=== PATIENT | female | born 1940 | race African-American/Black ===

== ENCOUNTER 2017-09-10 15:48 | Emergency (ER) | payer OTHER ==
[~2017-09-10] VITALS: Ht 154.9 cm; Wt 59.0 kg
[~2017-09-10 15:48] MED LIST: ALLERGY RELIEF10 M1 PO; ASPI-COR81 M1 PO; COR3 PO; CRESTOR10 M1 PO; CRESTOR10 MG PO; DYMISTA1 SPR NS; GLU500 PO; HYDRALAZINE100 MG PO; LIPITOR80 MG PO; PLA75 PO
[2017-09-10 15:54] VITALS: Ht 154.9 cm; Wt 59.0 kg
[2017-09-10 16:47] LABS: BASOPHIL % 0.4 % (0-2); PLATELET COUNT 235 x10^3mcL (130-400)
[2017-09-10 17:00] LABS: CALCIUM 8.7 mg/dL (8.5-10.1); CARBON DIOXIDE 31.9 mmol/L (21-32); CHLORIDE SERUM 107 mmol/L (98-107); CREATININE SERUM 1.1 mg/dL (0.6-1.0); GLUCOSE SERUM 112 mg/dL (74-106); POTASSIUM SERUM 4.2 mmol/L (3.5-5.1); SODIUM SERUM 144 mmol/L (136-145)
[2017-09-10 17:05] LABS: ALKALINE PHOSPHATASE 72 U/L (46-116); ALT/SGPT 16 U/L (14-59); AST/SGOT 15 U/L (15-37); BILIRUBIN TOTAL 0.2 mg/dL (0.20-1.00); TOTAL PROTEIN, SERUM 7.5 g/dL (6.4-8.2)
[2017-09-10 17:07] LABS: ALBUMIN 3.1 g/dL (3.4-5.0)
[2017-09-10 17:31] LABS: RED CELL DISTRIBUTION WIDTH 18.5 % (11.5-14.5)
[2017-09-10 18:30] VITALS: BP 137/78
== END 2017-09-10 18:30 | disposition home or self-care (01) ==
LOC: ED 15:48
PROVIDERS: Emergency Medicine
DX: R04.0 Epistaxis (principal); Z88.0 Allergy status to penicillin; Z88.2 Allergy status to sulfonamides; J44.9 Chronic obstructive pulmonary disease, unspecified; I10 Essential (primary) hypertension; E11.8 Type 2 diabetes mellitus with unspecified complications
CPT/HCPCS: 36415

== ENCOUNTER 2018-11-06 14:26 | Inpatient (IN) | payer OTHER ==
[~2018-11-06] VITALS: Ht 157.5 cm; Wt 64.0 kg
--- NOTE | 2018-11-06 15:16 | NUR ---
PT BIB, PT WAS FOUND ON FLOOR OF APT IN SEATED POSITION, PT WAS ABLE TO STATE SHE HAD FALLEN AND SEATED SELF DOWN ON FLOOR, PT HAD BEEN ON FLOOR >24HRS, PT DENIES ANY PAIN, BUT HAS PROFOUND WEAKNESS; PER EMS, APT WAS VERY HOT, PT WAS UNABLE TO TURN ON AIR CONDITIONING; PT HAS HX OF CHF AND DEMENTIA; IS ABLE TO ANSWER SOME QUESTIONS APPROPRIATELY, BUT REMAINS WITH SOME CONFUSED SPEECH; PREP FOR EXAM/EVAL; PT HAS NO FEVER
--- NOTE | 2018-11-06 16:16 | NUR ---
PT SEEN BY PROVIDER ORDERS REC'D; PT REFUSED PHLEBOTOMY FOR LAB DRAW; PT WANTING FOOD AT THIS TIME
[2018-11-06 16:44] LABS: BASOPHIL % 0 % (0-2); PLATELET COUNT 219 x10^3mcL (130-400); RED CELL DISTRIBUTION WIDTH 19.2 % (11.5-14.5)
--- NOTE | 2018-11-06 16:53 | NUR ---
IV LINE INITIATED TO L AC; PT ANGELIA WELL, LABS DRAWN/SENT INCLUDING BLOOD CULTURES; IV FLUIDS INIITATED; PT ANGELIA WELL, CONT TO MONITOR
[2018-11-06 16:58] LABS: CALCIUM 8.7 mg/dL (8.5-10.1); CARBON DIOXIDE 27.7 mmol/L (21-32); CHLORIDE SERUM 109 mmol/L (98-107); GLUCOSE SERUM 111 mg/dL (74-106); POTASSIUM SERUM 3.1 mmol/L (3.5-5.1); SODIUM SERUM 147 mmol/L (136-145)
[2018-11-06 17:02] LABS: ALBUMIN 3.2 g/dL (3.4-5.0); ALKALINE PHOSPHATASE 56 U/L (46-116); ALT/SGPT 19 U/L (14-59); AST/SGOT 21 U/L (15-37); BILIRUBIN TOTAL 0.3 mg/dL (0.20-1.00); CHOLESTEROL 139 mg/dL (<200); HDL CHOLESTEROL 58 mg/dL (40-60); MAGNESIUM 2.1 mg/dL (1.8-2.4); TOTAL PROTEIN, SERUM 7.5 g/dL (6.4-8.2)
--- NOTE | 2018-11-06 17:35 | NUR ---
PT RESTING WELL, GIVEN SANDWICH AND ORAL FLUIDS; ANGELIA WELL, WAITING ON FURTHER EVAL
--- NOTE | 2018-11-06 18:05 | NUR ---
PT LINEN CHANGED, NEW DIAPER PLACED
--- NOTE | 2018-11-06 18:59 | NUR ---
PT AGREEABLE TO ADMIT; ANGELIA LOPEZ
[2018-11-06 19:21] LABS: FREE T4 1.4 ng/dL (0.76-1.46); FREE THYROXINE INDEX 2.1 ug/dL (1.4-4.5); T4(THYROXINE) 6.7 ug/dL (4.7-13.3)
[2018-11-06 19:24] LABS: T3 TOTAL 1.02 ng/mL
--- NOTE | 2018-11-06 19:54 | NUR ---
REPORT GIVEN TO SERINA PHILLIPS TO ASSUME CARE OF PT.
[2018-11-06 20:27] LABS: microscopic required? YES; urine erythrocyte 1+ (NEGATIVE)
--- NOTE | 2018-11-06 20:32 | NUR ---
RECEIVED PT FROM ED VIA TRAVIS, CAME IN DUE TO SYNCOPE AND FALL YESTERDAY. AAOX4, IGIUGIG, ABLE TO FOLLOW COMMANDS. SPEECH IS CLEAR, NO FACIAL DROOP, RIGHT HAND ALMOND PASTE MOLDER IS WEAKER THAN THE LEFT. NO SOB, LUNG SOUNDS CTA. O2 SAT=98% ON 2LPM/NC. DENIES CHEST PAIN/PRESSURE, SR ON THE MONITOR. DENIES ABDOMINAL DISCOMFORT. VOIDS. W/ ECCHYMOSIS ON BILATERAL KNEE AND LEFT HIP, DISCOLORATIONS W/ DRY SKIN ON THE LEFT BREASTFOLD AND PINK DISCOLORATION ON THE LEFT ABDOMINAL FOLD AND RIGHT ANTECUBITAL AREA AND LEFT HIP ECCHYMOSIS, SHEET ROCK SANDER. SIDE RAILS UPX2. CALL LIGHT ON REACH. HOB ELEVATED AT 30 DEG. ENDORSED TO PRIMARY NURSE KINGSLEY FOR CONTINUITY OF CARE
[2018-11-06 21:00] VITALS: BP 135/84
--- NOTE | 2018-11-06 21:00 | NUR ---
RECEIVED REPORT FROM ADMITTING NURSE NGOC. PT STATES FEELING SLEEPY. WANTS TP REST. IV TO LAC NOT FLUSHING. NEW IV INSERTED TO RIGHT HAND. CONNECTED TO IV FLUIDS AT 100ML/HR. NO ACUTE DISTRESS NOTED. BED AT LOWEST SETTING. SIDE RAILS X2 UP. CALL LIGHT WITHING REACH. WILL CONTINUE TO MONITOR.
[2018-11-06 21:03] VITALS: Ht 157.5 cm; Wt 64.0 kg
[2018-11-07 00:20] VITALS: BP 135/84
--- NOTE | 2018-11-07 00:22 | NUR ---
PT LAYING DOWN IN BED WITH EYES CLOSED. BREATHING EVEN AND UNLABORED ON 2L NC. HOB ELEVATED. NO SOB NOTED. NO ACUTE DISTRESS NOTED. NS RUNNING AT 100ML/HR TO RIGHT HAND. BED AT LOWEST SETTING. SIDE RAILS X2 UP. CALL LIGHT WITHING REACH. WILL CONTINUE TO MONITOR.
[2018-11-07 06:21] VITALS: BP 175/88
--- NOTE | 2018-11-07 06:56 | NUR ---
PT SLEPT WELL THROGHOUT THE NIGHT. BREATHING EVEN AND UNLABORED ON 2L NC. NO ACUTE DISTRESS NOTED. PT AAOX3, FORGETFUL AT TIMES. PT BP 175/88, RESIDENT SANGEETA MADE AWARE. NEW ORDERS RECEIVED FOR HYDRALAZINE PRN. HYDRALAZINE PRN GIVEN PER MAY. ALL NEEDS ASSESSED AND ATTENDED TO. BED AT LOWEST SETTING. SIDE RAILS X2 UP. CALL LIGHT WITHING REACH. WILL ENDORSE CARE TO AM NURSE.
--- NOTE | 2018-11-07 07:09 | NUR ---
PT CURRENT BP, 129/64 MAP 102, HR 72. NO AUCTE DISTRESS NOTED. WILL ENDORSE CARE TO AM NURSE.
[2018-11-07 07:12] LABS: BASOPHIL % 0.6 % (0-2); PLATELET COUNT 225 x10^3mcL (130-400)
[2018-11-07 07:16] LABS: RED CELL DISTRIBUTION WIDTH 19.8 % (11.5-14.5)
--- NOTE | 2018-11-07 07:30 | NUR ---
PT ENDORSE TO ME THIS MORNING. LAYING IN BED RESTING, AA/O X4, BREATHING EVEN AND UNLABORED REMAINS ON 2L NC, I.S. NO ACUTE RESP DISTRESS OR SOB NOTED. TELE 16 SR NOTED / DENIES ANY CP OR PRESSURE. INCONT. GEN WEAKNESS NOTED/ PER PT USES WALKER AT HOME. PENDING PT EVAL TODAY. L HIP AND RAC DISCOLORATION /THEA. L BREASTFOLD/ABD DISCOLORATION/ SHOTWELD OPERATOR AND R KNEE ABRASION NOTED/ SHOTWELD OPERATOR. IV TO THE LAC INTACT AND PATENT/ INFUSING AT 100ML/HR, NO REDNESS OR SWELLING NOTED. CALL LIGHT IN REACH, X2 SIDE RAILS UP/ KNOWS TO CALL FOR ASSIST. WILL CONTINUE TO MONITOR.
[2018-11-07 08:50] LABS: CALCIUM 7.7 mg/dL (8.5-10.1); CARBON DIOXIDE 28.9 mmol/L (21-32); CHLORIDE SERUM 109 mmol/L (98-107); CREATININE SERUM 0.9 mg/dL (0.6-1.0); GLUCOSE SERUM 124 mg/dL (74-106); SODIUM SERUM 147 mmol/L (136-145)
[2018-11-07 08:51] LABS: POTASSIUM SERUM 2.9 mmol/L (3.5-5.1)
--- NOTE | 2018-11-07 09:00 | NUR ---
LAB CALLED K 2.9, DR. EDWIN HILL. WILL CONTINUE TO MONITOR.
[2018-11-07 09:47] VITALS: BP 139/69
--- NOTE | 2018-11-07 10:43 | NUR ---
PT TAKEN TO RADIOLOGY FOR CT OF HEAD- PT HEPLOCKED, BREATHING EVEN AND UNLABORED ON 2 L NC, NO ACUTE RESP DISTRESS OR SOB NOTED. WILL CONTINUE TO MONITIOR WHEN PT RETURNS.
--- NOTE | 2018-11-07 11:50 | NUR ---
PT BACK FROM RAD, RECONNECTED TO IV 1/2 NS AT 80ML/HR/ PT DENIES ANY PAIN OR DISCOMFORT AT THIS TIME. WILL CONTINUE TO MONITOR.
--- NOTE | 2018-11-07 14:30 | NUR ---
PT TOLERATED 100% OF LUNCH. DENIES ANY N/V OR ABD DISCOMFORT. WILL CONTINUE TO MONITOR.
[2018-11-07 15:04] LABS: AMPHETAMINE QUAL UR NONE DETECTED (See below)
[2018-11-07 18:00] VITALS: BP 142/85
--- NOTE | 2018-11-07 18:18 | NUR ---
NO ACUTE CHANGES AT THIS TIME. NO ACUTE RESP DISTRESS OR SOB NOTED. IV TO THE LAC AND LFA INTACT AND PATENT/ NO REDNESS OR SWELLING NOTED. CALL LIGHT IN REACH. BED IN LOW POSITION, X2 SIDE RAILS UP, WILL ENDORSE TO INCOMING RN.
--- NOTE | 2018-11-07 19:41 | NUR ---
PT SEEN, RESTING IN BED, ALERT AND ORIENTED X 1-2 WITH PERIODS OF CONFUSION AND FORGETFUL, DENIES HEADACHE OR DIZZINESS, BREATHING EVEN AND UNLABORED, LUNG SOUNDS CLEAR BUT DIMINISHED AT BASE, ON O2 2L VIA NC WITH NO RESP DISTRESS NOTED, ON TELE#16 NSR, DENIES CHEST PAIN, IVF INFUSING WELL, K-RIDER STILL INFUSING AT THIS TIME, PULSES PALPABLE, NO EDEMA NOTED, GENERALIZED WEAKNESS, ABLE TO REPOSITION HERSELF IN BED, ABD SOFT AND FLAT WITH ACTIVE BS, INCONTINET, SIDE RAILS UP, BED ALARM ON, NO DISTRESS NOTED, WILL KEEP TO MONITOR.
--- NOTE | 2018-11-07 21:30 | NUR ---
PT IS VERY CONFUSED AND UNCOOPERATIVE WITH NURSING CARE AT THIS TIME, REFUSED TO HAVE HYDRALAZINE IVP FOR HIGH BP, EXPLAINED ALL THE PURPOSE, RISK AND BENEFIT WITH IT, PT STILL REFUSED AT FIRST BUT AFTER PT TALKED TO HER OWN HOME HEALTH NURSE LIV THEN SHE AGREED TO LET NURSE ADMINISTER THE MEDS, WILL RECHECK PT'S BP.
[2018-11-07 21:42] VITALS: BP 173/102
[2018-11-07 22:45] VITALS: BP 97/54
[2018-11-08 05:10] VITALS: BP 157/83
--- NOTE | 2018-11-08 05:48 | NUR ---
PT ASLEEP BUT EASILY AROUSABLE, SLEPT MOST OF NIGHT AFTER MEDICATED WITH HALDOL IM, STILL WITH PERIODS OF CONFUSION AND FORGETFUL, FALL PRECAUTION IN PLACE, BED ALARM ON, MORNING CARE GIVEN, IVF INFUSING WELL, MORNING BLOOD SUGAR-139 MG/DL WITH NO RISS, NO DISTRESS NOTED, WILL KEEP TO MONITOR.
[2018-11-08 06:22] LABS: BASOPHIL % 0.4 % (0-2); PLATELET COUNT 236 x10^3mcL (130-400)
[2018-11-08 06:37] LABS: CALCIUM 7.8 mg/dL (8.5-10.1); CARBON DIOXIDE 28.6 mmol/L (21-32); CHLORIDE SERUM 108 mmol/L (98-107); CREATININE SERUM 0.9 mg/dL (0.6-1.0); GLUCOSE SERUM 145 mg/dL (74-106); MAGNESIUM 1.7 mg/dL (1.8-2.4); PHOSPHOROUS 2.5 mg/dL (2.5-4.9); POTASSIUM SERUM 3.2 mmol/L (3.5-5.1); SODIUM SERUM 145 mmol/L (136-145)
--- NOTE | 2018-11-08 07:05 | NUR ---
RECIEVED PT RESTING IN BED WITH NO C/O PAIN, DISTRESS, OR SOB. A/O X3, CONFUSION/FORGETFUL. TELE #16 CONNECTED TO PT, DENIES CP OR PRESSURE. PT ON 2 LPM O2 NC. 45% NS RUNNING AT 80ML/HR IN RH. IV IN RFA ALSO. BOTH INTACT AND PATENT WITH NO REDNESS OR INFLAMMATION NOTED. SAFETY PRECAUTIONS IN PLACE, CALL LIGHT WITHIN REACH, WILL MONITOR.
--- NOTE | 2018-11-08 07:21 | NUR ---
BEDSIDE HANDOFF REPORT GIVEN TO JODI, ALL QUESTIONS ANSWERED AND CONCERNS ADDRESSED.
[2018-11-08 07:24] LABS: RED CELL DISTRIBUTION WIDTH 19.6 % (11.5-14.5)
--- NOTE | 2018-11-08 10:00 | NUR ---
PT STABLE AT THIS TIME. NO C/O PAIN OR DISTRESS. SAFETY PRECAUTIONS IN PLACE, CALL LIGHT WITHIN REACH, WILL MONITOR.
--- NOTE | 2018-11-08 12:21 | NUR ---
PT REFUSED INSULIN COVERAGE, EXPLAINED RISKS/BENEFITS. WILL MONITOR.
[2018-11-08 12:38] VITALS: BP 148/85
--- NOTE | 2018-11-08 15:30 | NUR ---
PT STABLE WITH NO C/O PAIN OR DISTRESS. SAFETY PREC IN PLACE, CALL LUGHT WITHIN REACH, WILL MONITOR.
[2018-11-08 16:39] VITALS: BP 162/94
--- NOTE | 2018-11-08 19:30 | NUR ---
RECEIVED PT RESTING IN BED, NO ACUTE DISTRESS NOTED. PT ABSENTEE-SHAWNEE, HX OF DEMENTIA; ABLE TO REORIENT. AOX2, FORGETFUL AT TIMES. MEDSURG PT, SR 73, DENIES CP. PULSES PALPABLE BILAT, DENIES NUMBNESS/TINGLING IN FEET. RESP EVEN AND UNLABORED, CTA ON 2LNC, DENIES SOB, ABD SOFT, ROUND, DENIES ABD PAIN. PT INCONTINENT OF URINE AND STOOL. GENERALIZED WEAKNESS, ABLE TO ASSIST WITH TURNING. MINIMAL DISCOLORATION TO ABD FOLDS, SKIN CLEAN AND DRY. BILAT KNEE REDNESS, APPLIED SCD'S PER ORDER. IV SITE TO THE RFA REMAINS PATENT, 1/2 NS @ 80ML/HR. NO REDNESS, SWELLING OR PAIN NOTED. PT ON LEVAQUIN FOR POSSIBLE UTI, ALTHOUGH UA CX NEGATIVE, WILL NOTIFY RESIDENT IN REGARDS TO D/C ANTIBIOTICS. PT DENIES DYSURIA. ALL COMFORT AND SAFETY MEASURES PROVIDED FOR, CALL LIGHT WITHIN REACH, BED IN LOWEST POSITION, WILL CONTINUE TO MONITOR.
--- NOTE | 2018-11-08 19:41 | NUR ---
PT STABLE AT THIS TIME WITH NO C/O PAIN, DISTRESS, OR SOB. ALL CARES TOLERATED WELL. VS WNL. RESTING COMFORTABLY IN BED. BOTH IV'S INTACT AND PATENT IN RH AND RAC. NO REDNESS OR INFLAMMATION NOTED. SAFETY PRECAUTIONS IN PLACE, CALL LIGHT WITHIN REACH, ENDORSED TO NIGHT NURSE.
[2018-11-08 20:17] VITALS: BP 160/85
[2018-11-08 21:20] VITALS: BP 145/86
--- NOTE | 2018-11-08 21:20 | NUR ---
PT REPORTED SHE URINATED, CHANGED PT AND CLEANSED SKIN. PT TOLERATED WELL, ABLE TO ASSIST WITH TURNING, PROVIDED PT SOME WATER PER REQUEST, PT REQUESTING TO HAVE SCD'S REMOVED, EDUCATED IN REGARDS TO INCREASED RISK OF DVT D/T LIMITED MOBILITY, PT VERBALIZES UNDERSTANDING YET STILL REFUSING SCD'S, WILL ATTEMPT TO REAPPLY CLOSER TO BED TIME. CALL LIGHT WITHIN REACH, BED IN LOWEST POSITION, WILL CONTINUE TO MONITOR.
--- NOTE | 2018-11-09 05:05 | NUR ---
PT RESTED IN INTERVALS DURING SHIFT, NO ACUTE CHANGES OCCURRING OVERNIGHT. PT VOIDED X3 DURING SHIFT, PT APPEARS UPSET THIS MORNING AND REFUSING LABS D/T "NOT ENOUGH LIGHT, SHE CANT SEE" ATTEMPTED TO REORIENT SEVERAL TIMES ALTHOUGH PT STATES SHE CALLED SEVERAL TIMES AND NO ONE CAME TO HELP HER WHICH IS WHY SHE IS FEELING SHE CANT TRUST ANYONE. ALL LIGHTS ON IN ROOM AND PROVIDED REORIENTATION TO PT THAT DIRECTOR OF FINANCE CAN SEE AND PT IS STILL REFUSING. WILL ATTEMPT LATER ON DURING SHIFT. PT BED LINENS CHANGED AND GOWN CHANGED. ALL COMFORT AND SAFETY MEASURES PROVIDED FOR, CALL LIGHT WITHIN REACH, BED IN LOWEST POSITION, WILL CONTINUE TO MONITOR.
[2018-11-09 06:14] VITALS: BP 156/77
--- NOTE | 2018-11-09 07:25 | NUR ---
RECEIVED PT FROM DEVICE REPAIR TECHNICIAN, RESTING IN BED. ASSESSED AND DOCUMENTED. DENIES PAIN THIS TIME. SAFTEY PRECAUTIONS ARE IN PLACE. WILL MONITOR.
[2018-11-09] MEDS ORDERED: LIPITOR40 MG PO (09:22)
[2018-11-09] MEDS ORDERED: COR3 PO (09:22)
[2018-11-09] MEDS ORDERED: LEVAQUIN500 M1 PO (09:22)
[2018-11-09] MEDS ORDERED: PLAVIX75 M1 PO (09:22)
[2018-11-09 09:45] LABS: CALCIUM 8.2 mg/dL (8.5-10.1); CARBON DIOXIDE 32.3 mmol/L (21-32); CHLORIDE SERUM 107 mmol/L (98-107); CREATININE SERUM 0.9 mg/dL (0.6-1.0); GLUCOSE SERUM 177 mg/dL (74-106); POTASSIUM SERUM 3.5 mmol/L (3.5-5.1); SODIUM SERUM 144 mmol/L (136-145)
[2018-11-09 09:55] VITALS: BP 172/87
[2018-11-09 10:59] LABS: BASOPHIL % 0.4 % (0-2); PLATELET COUNT 205 x10^3mcL (130-400)
[2018-11-09 11:00] LABS: RED CELL DISTRIBUTION WIDTH 20.3 % (11.5-14.5)
--- NOTE | 2018-11-09 13:00 | NUR ---
PT RESTING IN BED COMFORTABLY. STABLE. ATE LUNCH. DENIES ANY PAIN.
[2018-11-09 13:36] VITALS: BP 162/84
[2018-11-09 13:39] LABS: ovalocyte/elliptocyte 1+; rbc morphology (normal/abnorm) ABNORMAL (NORMAL)
[2018-11-09 15:13] VITALS: BP 162/84
--- NOTE | 2018-11-09 15:20 | NUR ---
TRANSPORTATION IS HERE TO CAGE SHIFT MANAGER PT. REPORT GIVEN TO [facility]. CRAE DIRECTOR OF CONSERVATION AWARE ABOUT TRANSFER. PT IS AWAKE,ALERT AND ORIENTED X4 NOW AND SHE SIGNED HER DC PAPER. IV AND TELE REMOVED. PT DENIES ANY PAIN. NO DISTRESS NOTED. PT DC TO SNF VIA GURNEY.
== END 2018-11-09 15:44 | DRG 640 ==
LOC: ED 14:26 → DU 18:22 → MU 18:22 → DU 20:32
PROVIDERS: Emergency Medicine; Internal Medicine; ADMIT Internal Medicine
DX: E86.0 Dehydration (principal); G93.41 Metabolic encephalopathy; J96.20 Acute and chronic respiratory failure, unspecified whether with hypoxia or hypercapnia; N39.0 Urinary tract infection, site not specified; J98.11 Atelectasis; J44.1 Chronic obstructive pulmonary disease with (acute) exacerbation; E87.6 Hypokalemia; E11.9 Type 2 diabetes mellitus without complications; I11.0 Hypertensive heart disease with heart failure; I50.9 Heart failure, unspecified; F03.90 Unspecified dementia, unspecified severity, without behavioral disturbance, psychotic disturbance, mood disturbance, and anxiety; I25.10 Atherosclerotic heart disease of native coronary artery without angina pectoris; I25.2 Old myocardial infarction; Z68.23 Body mass index [BMI] 23.0-23.9, adult; Z95.5 Presence of coronary angioplasty implant and graft; Z86.73 Personal history of transient ischemic attack (TIA), and cerebral infarction without residual deficits; Z79.84 Long term (current) use of oral hypoglycemic drugs; Z99.81 Dependence on supplemental oxygen; X30.XXXA Exposure to excessive natural heat, initial encounter; Y92.038 Other place in apartment as the place of occurrence of the external cause
CPT/HCPCS: 82962; 83880; 84439; 97116-GP; 97530-GP; G0378; J0360; J1630; J1956; J3475; J3480; J7030; J7620; Q0092

== ENCOUNTER 2019-02-13 11:18 | Emergency (ER) | payer OTHER ==
[~2019-02-13] VITALS: Ht 152.4 cm; Wt 57.6 kg
[~2019-02-13 11:18] MED LIST changes: +LEVAQUIN500 M1 PO; +LIPITOR40 MG PO; +PLAVIX75 M1 PO
[2019-02-13 11:33] VITALS: Ht 152.4 cm; Wt 57.6 kg
[2019-02-13 12:26] VITALS: BP 129/74
== END 2019-02-13 12:26 | disposition home or self-care (01) ==
LOC: ED 11:18
DX: L20.9 Atopic dermatitis, unspecified (principal); S40.861A Insect bite (nonvenomous) of right upper arm, initial encounter; S20.162A Insect bite (nonvenomous) of breast, left breast, initial encounter; S20.161A Insect bite (nonvenomous) of breast, right breast, initial encounter; J44.9 Chronic obstructive pulmonary disease, unspecified; I10 Essential (primary) hypertension; E11.9 Type 2 diabetes mellitus without complications; Z88.0 Allergy status to penicillin; Z88.2 Allergy status to sulfonamides; W57.XXXA Bitten or stung by nonvenomous insect and other nonvenomous arthropods, initial encounter; Y93.89 Activity, other specified; Y92.89 Other specified places as the place of occurrence of the external cause; Y99.8 Other external cause status

== ENCOUNTER 2019-05-16 12:17 | Emergency (ER) | payer OTHER ==
[~2019-05-16] VITALS: Ht 154.9 cm; Wt 54.9 kg
[2019-05-16 12:27] VITALS: Ht 154.9 cm; Wt 54.9 kg
[2019-05-16 15:22] VITALS: BP 156/85
== END 2019-05-16 15:22 | disposition home or self-care (01) ==
LOC: ED 12:17
DX: J40 Bronchitis, not specified as acute or chronic (principal); J44.9 Chronic obstructive pulmonary disease, unspecified; I10 Essential (primary) hypertension; E11.9 Type 2 diabetes mellitus without complications; Z88.0 Allergy status to penicillin; Z88.2 Allergy status to sulfonamides
CPT/HCPCS: 87804; Q0092

== ENCOUNTER 2019-08-01 02:25 | Emergency (ER) | payer OTHER ==
[~2019-08-01] VITALS: Ht 160 cm; Wt 49.9 kg
[2019-08-01 02:30] VITALS: Ht 160 cm; Wt 49.9 kg
[2019-08-01 02:59] LABS: BASOPHIL % 0.5 % (0-2); PLATELET COUNT 216 x10^3mcL (130-400)
[2019-08-01 03:00] LABS: RED CELL DISTRIBUTION WIDTH 17.1 % (11.5-14.5)
[2019-08-01 03:03] LABS: CALCIUM 9.1 mg/dL (8.5-10.1); CHLORIDE SERUM 104 mmol/L (98-107); GLUCOSE SERUM 217 mg/dL (74-106); POTASSIUM SERUM 4.1 mmol/L (3.5-5.1); SODIUM SERUM 144 mmol/L (136-145)
[2019-08-01 03:08] LABS: ALKALINE PHOSPHATASE 94 U/L (46-116); ALT/SGPT 38 U/L (14-59); AST/SGOT 26 U/L (15-37); BILIRUBIN TOTAL 0.16 mg/dL (0.20-1.00); TOTAL PROTEIN, SERUM 6.6 g/dL (6.4-8.2)
[2019-08-01 03:09] LABS: ALBUMIN 2.8 g/dL (3.4-5.0)
[2019-08-01 03:21] LABS: AMPHETAMINE QUAL UR NONE DETECTED (See below)
[2019-08-01 03:33] LABS: UA SPECIFIC GRAVITY <=1.005 (1.005-1.035); microscopic required? YES; urine erythrocyte NEGATIVE (NEGATIVE)
[2019-08-01 05:41] VITALS: BP 148/74
== END 2019-08-01 05:41 ==
LOC: ED 02:25
PROVIDERS: Emergency Medicine
DX: N39.0 Urinary tract infection, site not specified (principal); R45.1 Restlessness and agitation; J44.9 Chronic obstructive pulmonary disease, unspecified; I10 Essential (primary) hypertension; E11.9 Type 2 diabetes mellitus without complications; Z02.79 Encounter for issue of other medical certificate; Z88.0 Allergy status to penicillin; Z88.2 Allergy status to sulfonamides
CPT/HCPCS: 36415; G0480